=== PATIENT | female | born 1950 | race Caucasian/White ===

== ENCOUNTER 2020-12-08 10:25 | Inpatient (IN) ==
--- NOTE | 2020-12-08 11:24 | Emergency Department Note ---
History of Present Illness General Chief complaint: Shortness of Breath/Dyspnea Stated complaint: SOB,FILLING UP WITH FLUID Time Seen by Provider: 12/08/20 11:03 Source: patient and family Limitations: altered mental status History of Present Illness Provider complaint: Cough and shortness of breath Onset (ago): day(s) Location: chest Pain Consistency: + intermittent Maximum Pain Intensity: 0 Quality: + other (Cough and shortness of breath) Relieved By: + none Associated symptoms: + confusion, + cough, + headaches (Intermittent headaches), + nausea/vomiting (Nausea without vomiting), + shortness of breath and + other (Diarrhea); no chest pain or no fever/chills This is a 70-year-old female with a history of pleural effusion status post pleurodesis and stage IV lung cancer presenting with her daughter with shortness of breath and cough starting yesterday. The patient's daughter is providing history as well as the patient due to her increased confusion. She states that the patient gets confused whenever she gets a pleural effusion. She is not sure why that occurs. She has had 2 pleural effusions recently and had pleurodesis performed. She states that her mother became short of breath and started coughing yesterday. She is also confused. She has been diagnosed with stage IV lung cancer and she has missed 2 appointments for a PET scan due to becoming ill prior to the scans. She is scheduled to have one tomorrow. Her daughter states she is concerned about possible aspiration as the patient has vocal cord injury and asked to have a special diet. She has been coughing since yesterday. She is vaccinated for COVID-19 as is the whole household. She has had no known exposure. She complains of intermittent headaches. She is nauseous but not vomiting. She denies any chest pain or abdominal pain. She does have some diarrhea. Home Medications Medication Instructions Recorded Confirmed Type benzonatate 100 mg capsule 100 mg PO BID PRN 12/08/20 12/08/20 History (Everardo Winchester) duloxetine 60 mg capsule,delayed 60 mg PO QAM 12/08/20 12/08/20 History release ergocalciferol (vitamin D2) 1,250 1,250 mcg PO WK 12/08/20 12/08/20 History mcg (50,000 unit) capsule (Vitamin D2) linaclotide 72 mcg capsule 72 mcg PO HS 12/08/20 12/08/20 History (Linzess) lorazepam 1 mg tablet (Ativan) 1 mg PO TID 12/08/20 12/08/20 History omeprazole 20 mg tablet,delayed 20 mg PO BID 12/08/20 12/08/20 History release umeclidinium 62.5 mcg-vilanterol 1 inh INHALATION DAILY 12/08/20 12/08/20 History 25 mcg/actuation powdr for inhalation (Anoro Ellipta) Allergies Allergy/AdvReac Type Severity Reaction Status Date / Time acetaminophen Allergy Mild nausea,vomi Unverified 12/08/20 13:45 tting oxycodone Allergy Mild nausea,vomi Unverified 12/08/20 13:45 tting Past Med/Surg History Medical History Lung cancer Pleural effusion Social History Smoking Status: Former smoker Hx Alcohol Use: No Hx Substance Use: No Preferred Language: Lebanese Communication Ability: Effective Nutrition Professor Required: No Beliefs That Will Affect Care: None Current Living Situation: Family Current Living Situation Comment: lives with sofia in [place] Feels Safe at Home: Yes Safety Concerns: Feels Safe At This Time Assistive Devices: Denture - Upper, Denture - Lower and Glasses Assistive Devices Comment: uses a walking stick at times at home Review of Systems See HPI for pertinent positives & negatives. and A total of 10 systems reviewed and were otherwise negative Physical Exam Vital Signs Vital Signs - 24 hr 12/08/20 10:43 12/08/20 11:15 12/08/20 14:01 Temperature 36.7 C Temperature Source Temporal Artery Scan Pulse Rate 113 H Pulse Rate [Right Finger] 100 H Respiratory Rate 18 22 Respiratory Effort / Characteristics Spontaneous Non-Labored Spontaneous Respiratory Depth Normal Blood Pressure 101/68 Blood Pressure [Right Arm] 121/75 Blood Pressure Mean 79 Blood Pressure Mean [Right Arm] 90 Blood Pressure Position [Right Arm] Sitting Pulse Oximetry 96 97 Oxygen Delivery Method Room Air Room Air Sepsis Recent Fever Within 48 Hours No Sepsis New/Unexplained Change in Mental Status No Sepsis Action Taken by Nursing No Action Required Constitutional: Vital signs reviewed. Eyes: Pupils are equal round reactive to light. Conjunctiva are noninjected. ENT: Pharynx is clear without erythema or exudate. Mucous membranes are moist. Neck supple without meningeal signs. Respiratory: Clear to auscultation bilaterally except for crackles at the right base. Breath sounds are equal bilaterally. Cardiovascular: Tachycardic. Heart rate 108. Regular rhythm. GI: Soft, nondistended and nontender. Bowel sounds are present. Musculoskeletal: No peripheral edema. No lower extremity tenderness. Integumentary: No cyanosis. or jaundice. Neurologic: The patient is awake and alert. She is oriented to person and year only. Cranial nerves II-XII are intact. Motor is 5 out of 5 all extremities. Sensation is intact to light touch all extremities. No slurred speech. Hypophonic due to vocal cord injury. No pronator drift. No limb ataxia. Psychiatric: Normal affect. Course Administered Medications Discontinued Medications Piperacillin Sod/Tazobactam Sod (Zosyn) 4.5 gm in 120 mls @ 240 mls/hr IV NOW ONE Stop: 12/08/20 14:15 Last Infusion: 12/08/20 15:09 Dose: 0 mls/hr Documented by: [id number] Admin: 12/08/20 14:26 Dose: 240 mls/hr Documented by: [id number] Medical Decision Making Differential Diagnosis Pneumonia, aspiration, bronchitis, COVID-19, pleural effusion, metastases to the brain, hypercapnia Medical Records Attestation: I reviewed the patient's medical records. I did perform a limited focused review of portions of the patient's old chart on the electronic medical record. The patient has had no recent pertinent visits to this hospital. Home Medications Current Medication List: was personally reviewed by me Laboratory Data Attestation: I reviewed the patient's lab results. Result diagrams: 12/08/20 11:35 12/08/20 11:35 Lab Results 12/08/20 12/08/20 12/08/20 Range/Units 11:35 11:35 11:37 WBC 14.82 H (4.8-10.8) K/uL RBC 3.71 L (4.2-5.4) M/uL Hgb 11.8 L (12.0-16.0) g/dL Hct 35.2 L (37-47) % MCV 94.9 (80-100) fL MCH 31.8 (25-34) pg MCHC 33.5 (32-36) g/dL RDW Std Deviation 50.2 H (36.4-46.3) fL RDW Coeff of Davonte 14.5 (11.5-14.5) % Plt Count 343 (130-400) K/uL MPV 9.9 (7.4-10.4) fL Immature Gran % (Auto) 0.3 % Neut % (Auto) 83.7 % Lymph % (Auto) 12.9 % [place] % (Auto) 2.5 % Eos % (Auto) 0.5 % Baso % (Auto) 0.1 % Neut # (Auto) 12.41 H (1.4-6.5) K/uL Lymph # (Auto) 1.91 (1.2-3.4) K/uL [place] # (Auto) 0.37 (0.11-0.59) K/uL Eos # (Auto) 0.08 (0-0.5) K/uL Baso # (Auto) 0.01 (0-0.2) K/uL Immature Gran # (Auto) 0.04 H (0.00-0.02) K/uL Sodium 132 L (136-145) mmol/L Potassium 4.1 (3.5-5.1) mmol/L Chloride 97 L (98-107) mmol/L Carbon Dioxide 33 H (21-32) mmol/L Anion Gap 2.0 L (3-11) BUN 10 (7-18) mg/dl Creatinine 0.58 L (0.6-1.2) mg/dl Est Cr Clr Drug Dosing 71.4 ml/min Est GFR ( Amer) 108.2 ml/min Est GFR (Non-Af Amer) 93.4 ml/min BUN/Creatinine Ratio 17.7 (10-20) Glucose 134 H (70-99) mg/dl Calcium 9.1 (8.5-10.1) mg/dl Magnesium 1.9 (1.8-2.4) mg/dl Total Bilirubin 0.4 (0.2-1) mg/dl AST 17 (15-37) U/L ALT 21 (12-78) U/L Alkaline Phosphatase 55 (45-117) U/L Troponin I < 0.015 (0-0.045) ng/ml Total Protein 6.3 L (6.4-8.2) gm/dl Albumin 2.5 L (3.4-5.0) gm/dl Globulin 3.8 (2.5-4.0) gm/dl Albumin/Globulin Ratio 0.7 L (0.9-2) COVID-19 Eval Order Covid19 at [facility] SARS-CoV-2 (PCR) (Negative) 12/08/20 Range/Units 11:37 WBC (4.8-10.8) K/uL RBC (4.2-5.4) M/uL Hgb (12.0-16.0) g/dL Hct (37-47) % MCV (80-100) fL MCH (25-34) pg MCHC (32-36) g/dL RDW Std Deviation (36.4-46.3) fL RDW Coeff of Davonte (11.5-14.5) % Plt Count (130-400) K/uL MPV (7.4-10.4) fL Immature Gran % (Auto) % Neut % (Auto) % Lymph % (Auto) % [place] % (Auto) % Eos % (Auto) % Baso % (Auto) % Neut # (Auto) (1.4-6.5) K/uL Lymph # (Auto) (1.2-3.4) K/uL [place] # (Auto) (0.11-0.59) K/uL Eos # (Auto) (0-0.5) K/uL Baso # (Auto) (0-0.2) K/uL Immature Gran # (Auto) (0.00-0.02) K/uL Sodium (136-145) mmol/L Potassium (3.5-5.1) mmol/L Chloride (98-107) mmol/L Carbon Dioxide (21-32) mmol/L Anion Gap (3-11) BUN (7-18) mg/dl Creatinine (0.6-1.2) mg/dl Est Cr Clr Drug Dosing ml/min Est GFR ( Amer) ml/min Est GFR (Non-Af Amer) ml/min BUN/Creatinine Ratio (10-20) Glucose (70-99) mg/dl Calcium (8.5-10.1) mg/dl Magnesium (1.8-2.4) mg/dl Total Bilirubin (0.2-1) mg/dl AST (15-37) U/L ALT (12-78) U/L Alkaline Phosphatase (45-117) U/L Troponin I (0-0.045) ng/ml Total Protein (6.4-8.2) gm/dl Albumin (3.4-5.0) gm/dl Globulin (2.5-4.0) gm/dl Albumin/Globulin Ratio (0.9-2) COVID-19 Eval Order SARS-CoV-2 (PCR) NEGATIVE (Negative) Imaging Data Radiologist's Impression: Head CT 12/08/20 11:[address] DOSE: 614.27 mGy.cm HISTORY: Altered mental status. TECHNIQUE: Multiaxial CT images of the head were performed without the use of intravenous contrast. Automated exposure control was utilized for this study. A dose lowering technique was utilized adhering to the principles of ALARA. Comparison: None. Findings: The paranasal sinuses and mastoid air cells are clear. The calvarium and skull base are intact. There is no mass, hematoma, midline shift, acute infarct. White matter hypodensity is nonspecific but suggestive of microvascular ischemic change. The ventricles and sulci demonstrate mild age-related involutional changes. Impression: No acute intracranial abnormality. Atrophy and microvascular ischemic changes. ACT 112: Negative or not required by law. Electronically signed by: Juan Miguel Rodriguez M.D. 12/08/2020 12:33 PM Chest X-Ray 12/08/20 11:16 XR chest 1V portable HISTORY: Dyspnea COMPARISON: None. FINDINGS: Patchy small peripheral airspace opacities within the mid lung zones. There is also a 1.2 cm nodular density within the left midlung zone. Trace bilateral pleural effusions. The heart is borderline enlarged. There is mild interstitial thickening most pronounced on the right. Old, healed right humeral neck fracture. No pneumothorax. Old posttraumatic and postoperative changes within the left humerus. IMPRESSION: 1. Small peripheral airspace opacities within the mid to lower lung zones with interstitial thickening and trace bilateral pleural effusions. This could be due to a low-grade viral pneumonia or mild interstitial pulmonary edema. 2. A 1.2 cm nodular density within left midlung zone may also correspond to the suspected edema/pneumonia. However, one to 2 month chest x-ray follow-up recommended to ensure resolution and to exclude the less likely possibility of a pulmonary nodule. ACT 112: Negative or not required by law. Electronically signed by: Juan Miguel Rodriguez M.D. 12/08/2020 1:38 PM ECG Data Attestation: I personally reviewed and interpreted this ECG as follows: Indication: + SOB/dyspnea Rate (beats per minute): 103 Rhythm: + sinus tachycardia ECG ST segments: + T-wave inversions; no ST elevation ECG Findings: + Other (Low voltage QRS); no PVCs MDM Narrative I did evaluate the patient as noted above. She is presenting with some confus ion and shortness of breath. She has also been coughing. I did obtain history from the patient as well as her daughter due to her confusion. IV access was established. I did place an order for continuous cardiac monitoring. The monitor showed sinus tachycardia rate of 103 bpm. I did order and personally review the patient's 12-lead EKG as described above. She has no acute ischemic changes. I did order and personally reviewed the images of the patient's chest x-ray as described above. She appears to have a bilateral pneumonia. I did order a urine analysis. I did order and review the patient's blood work as noted in the electronic medical record. Her white count is elevated over 14 ,000. She is anemic with a hemoglobin 11.8. Electrolytes demonstrate a sodium of 132, chloride of 97 and CO2 of 33. Troponin is negative. I did order a CT of the head. I did review the images myself as well as the radiology report as described above. There is no evidence of acute intracranial abnormality. I did discuss the test results with the patient and her daughter. I did treat the pat ient with Zosyn 4.5 g IV after blood cultures were obtained. Covid testing was negative. I did discuss the case with the hospitalist and hospice case manager. Impression & Plan Multifocal pneumonia, Acute hyponatremia, Anemia, Lung cancer, Acute confusion Discharge Plan Visit Data Chief Complaint: Shortness of Breath/Dyspnea Stated Complaint: SOB,FILLING UP WITH FLUID ED Provider: Skinny Eubanks Discharge Problem: Multifocal pneumonia, Acute hyponatremia, Anemia, Lung cancer, Acute confusion Patient Disposition: Admitted As Inpatient Discharge Instructions Interventions: ED Discharge Assessment Last Done: 12/08/20 18:07
[2020-12-08 11:46] LABS: Basophils # (auto) 0.01 K/uL (0-0.2); Basophils % (auto) 0.1 %; Eosinophils # (auto) 0.08 K/uL (0-0.5); Eosinophils % (auto) 0.5 %; Hematocrit (blood only) 35.2 % (37-47); Hemoglobin 11.8 g/dL (12.0-16.0); Immature Granulocytes # (auto) 0.04 K/uL (0.00-0.02); Immature Granulocytes % (auto) 0.3 %; Lymphocytes # (auto) 1.91 K/uL (1.2-3.4); Lymphocytes % (auto) 12.9 %; Mean Corpuscular Hemoglobin 31.8 pg (25-34); Mean Corpuscular Hgb Conc 33.5 g/dL (32-36); Mean Corpuscular Volume 94.9 fL (80-100); Mean Platelet Volume 9.9 fL (7.4-10.4); Monocytes # (auto) 0.37 K/uL (0.11-0.59); Monocytes % (auto) 2.5 %; Neutrophils # (auto) 12.41 K/uL (1.4-6.5); Neutrophils % (auto) 83.7 %; Platelet Count 343 K/uL (130-400); RDW Coefficient of Variation 14.5 % (11.5-14.5); RDW Standard Deviation 50.2 fL (36.4-46.3); Red Blood Count 3.71 M/uL (4.2-5.4); White Blood Count 14.82 K/uL (4.8-10.8)
[2020-12-08 12:03] LABS: Alanine Aminotransferase 21 U/L (12-78); Albumin Level 2.5 gm/dl (3.4-5.0); Aspartate Aminotransferase 17 U/L (15-37); BUN Creatinine Ratio 17.7 (10-20); Blood Urea Nitrogen 10 mg/dl (7-18); Calcium 9.1 mg/dl (8.5-10.1); Carbon Dioxide 33 mmol/L (21-32); Chloride 97 mmol/L (98-107); Creatinine Clr Calc Pharmacy 71.4 ml/min; Est GFR (African American) 108.2 ml/min; Est GFR (Non-African American) 93.4 ml/min; Glucose 134 mg/dl (70-99); Magnesium 1.9 mg/dl (1.8-2.4); Potassium 4.1 mmol/L (3.5-5.1); Sodium 132 mmol/L (136-145)
[2020-12-08 12:08] LABS: Albumin Globulin Ratio 0.7 (0.9-2); Alkaline Phosphatase 55 U/L (45-117); Bilirubin,Total 0.4 mg/dl (0.2-1); Globulin 3.8 gm/dl (2.5-4.0); Total Protein 6.3 gm/dl (6.4-8.2); Troponin I < 0.015 ng/ml (0-0.045)
--- NOTE | 2020-12-08 12:35 | CT Scan Report ---
HEAD CT NONCONTRAST CT DOSE: 614.27 mGy.cm HISTORY: Altered mental status. TECHNIQUE: Multiaxial CT images of the head were performed without the use of intravenous contrast. A utomated exposure control was utilized for this study. A dose lowering technique was utilized adheri ng to the principles of ALARA. Comparison: None. Findings: The paranasal sinuses and mastoid air cells are clear. The calvarium and skull base are int act. There is no mass, hematoma, midline shift, acute infarct. White matter hypodensity is nonspecifi c but suggestive of microvascular ischemic change. The ventricles and sulci demonstrate mild age-rela jeevan involutional changes. Impression: No acute intracranial abnormality. Atrophy and microvascular ischemic changes. ACT 112: Negative or not required by law. Electronically signed by: Juan Miguel Rodriguez M.D. 12/08/2020 12:33 PM
--- NOTE | 2020-12-08 13:40 | XRay Report ---
XR chest 1V portable HISTORY: Dyspnea COMPARISON: None. FINDINGS: Patchy small peripheral airspace opacities within the mid lung zones. There is also a 1.2 c m nodular density within the left midlung zone. Trace bilateral pleural effusions. The heart is borde rline enlarged. There is mild interstitial thickening most pronounced on the right. Old, healed right humeral neck fracture. No pneumothorax. Old posttraumatic and postoperative changes within the left humerus. IMPRESSION: 1. Small peripheral airspace opacities within the mid to lower lung zones with interstitial thickenin g and trace bilateral pleural effusions. This could be due to a low-grade viral pneumonia or mild int erstitial pulmonary edema. 2. A 1.2 cm nodular density within left midlung zone may also correspond to the suspected edema/pneum onia. However, one to 2 month chest x-ray follow-up recommended to ensure resolution and to exclude t he less likely possibility of a pulmonary nodule. ACT 112: Negative or not required by law. Electronically signed by: Juan Miguel Rodriguez M.D. 12/08/2020 1:38 PM
[2020-12-08] MEDS ORDERED: PIPERACILLIN/TAZOBACTAM 4.5 GM/120 ML BAG IV ONE (13:46)
[2020-12-08] MEDS ORDERED: PIPERACILL/TAZOBAC CONSULT ACTIVE PRN (13:46)
--- NOTE | 2020-12-08 14:38 | History & Physical Report ---
Date of Service December 08, 2020 Assessment & Plan (1) Multifocal pneumonia: Plan: MRSA nasal swab pending Continue Zosyn for aspiration pneumonia given immunosuppressed state SLT assessment Follow up blood cultures (2) Acute confusion: Plan: Suspect due to infection as above (3) Acute hyponatremia: Plan: IV fluids as above (4) Lung cancer: Plan: Stage IV diagnosed on prior hospital notes although details on this not available at this time. I understand this diagnosis was made due to bilateral nodules on CT with metastatic cells with her pleural effusion. Consult oncology as planning on establishing with [facility]. (5) Anemia: Plan: Monitor with serial CBC (6) COPD (chronic obstructive pulmonary disease): Plan: No acute exacerbation suspected at this time. (7) GERD (gastroesophageal reflux disease): Plan: Switch omeprazole to pantoprazole per hospital formulary (8) Soft hoarse voice: Plan: Vocal cord paralysis noted on prior admission. Going on for months according to patient. Possibly from intubation noted on [facility] notes but seem more likely related to metastatic disease. She was treated with steroids but has not seen any improvement. Yet to see ENT. Will consult SLT. (9) Night sweats: (10) Anxiety: Plan: Continue duloxetine 60mg PO daily On ARTHUR Ativan for many years. Continue 1mg TID Plan: VTE Prophylaxis - deferred on admission, consider Lovenox if stable tomorrow and no invasive procedures planned Diet - NPO pending SLT assessment Disposition - admit to med/surg Admission and Anticipated Discharge Date Admission Date: December 08, 2020 History of Present Illness Chief Complaint: Shortness f breath Primary Care Provider: NO PCP Tracey Felton is a 70 year old female with stage IV lung cancer who presents to the ER with shortness of breath and confusion. History is mostly taken with her daughter at bedside due to confusion and patient has a haorse soft voice from vocal cord palsy. She has just moved here with her daughter and is yet to establish care. Previous care was done in the [facility]. Most recently in [facility] from November 18 - for recurrent pleural effusion on right side which required pleurodesis, PNA and COPD. She was intubated for acute hypoxic respiratory failure. She had pleurodesis prior to this at [facility] although results of this are not available on admission. On this occasion it was treated with VATS with talc pleurodesis (11/20). She was treated initially with Vancomycin/Zosyn, steroids and treated for sepsis. She was advised to have a thickened diet due to vocal cord palsy and aspirations. No conversation had taken place regarding PEG tubes and this was a new concept for the patient and his daughter. At home she has been noticeably aspirating despite thickened diet. She has had problems with aspirations and her hoarse voice for many months prior to recent hospitalization. She has not seen ENT but it was recommended after her last admission. Reportedly diagnosed with vocal cord palsy and treated with steroids in the hope of improvement after intubation. She has a prior history of non-small cell carcinoma treated prior to this (details not available on admission). This was treated with chemotherapy and left upper lobe lobectomy per her daughter. No radiation. In the ER CXR showed small peripheral airspace opacities within the mid to lower lung zones with interstitial thickening and trace bilateral pleural effusions. WBC elevated. She is not requiring any oxygen. UA pending collection. She was referred to medicine for admission and ongoing management of PNA and lung cancer. Allergies Allergy/AdvReac Type Severity Reaction Status Date / Time acetaminophen Allergy Mild nausea,vomi Unverified 12/08/20 13:45 tting oxycodone Allergy Mild nausea,vomi Unverified 12/08/20 13:45 tting Home Medications Medication Instructions Recorded Confirmed Type benzonatate 100 mg capsule 100 mg PO BID PRN 12/08/20 12/08/20 History (Everardo Winchester) duloxetine 60 mg capsule,delayed 60 mg PO QAM 12/08/20 12/08/20 History release ergocalciferol (vitamin D2) 1,250 1,250 mcg PO WK 12/08/20 12/08/20 History mcg (50,000 unit) capsule (Vitamin D2) linaclotide 72 mcg capsule 72 mcg PO HS 12/08/20 12/08/20 History (Linzess) lorazepam 1 mg tablet (Ativan) 1 mg PO TID 12/08/20 12/08/20 History omeprazole 20 mg tablet,delayed 20 mg PO BID 12/08/20 12/08/20 History release umeclidinium 62.5 mcg-vilanterol 1 inh INHALATION DAILY 12/08/20 12/08/20 History 25 mcg/actuation powdr for inhalation (Anoro Ellipta) Past Med/Surg History Medical History (Updated 12/09/20 @ 08:02 by Harinder Mauro MD) COPD (chronic obstructive pulmonary disease) GERD (gastroesophageal reflux disease) History of CVA (cerebrovascular accident) Chronic right basal ganglia infarct noted on CT Lung cancer Pleural effusion Shoulder fracture Right, 2017 Social History Smoking Status: Former smoker Hx Alcohol Use: No Hx Substance Use: No Preferred Language: Urdu Communication 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: No Beliefs That Will Affect Care: None Current Living Situation: Family Current Living Situation Comment: lives with sofia in [place] Feels Safe at Home: Yes Safety Concerns: Feels Safe At This Time Assistive Devices: Glasses and Walker Assistive Devices Comment: uses a walking stick at times at home Review of Systems Review of Systems: All systems reviewed & are unremarkable except as noted in HPI & below Physical Exam Constitutional: well developed and + cachectic; + not well nourished and no acute distress Eyes: PERRL, conjunctivae normal, anicteric sclerae ENMT: Mouth: + muffled voice and + dry oral mucous membranes Neck: trachea midline, no thyromegaly Respiratory: normal respiratory effort; no respiratory distress Auscultation: + diminished lung sounds and + crackles (throughout); no wheezes Cardiovascular: Rate/Rhythm: regular rhythm and + tachycardic Heart Sounds: no murmur Extremities: normal capillary refill; no calf tenderness and no pedal edema Gastrointestinal (Abdomen): normal bowel sounds, soft, nontender, no hepatosplenomegaly Musculoskeletal: no cyanosis or clubbing, extremities motor strength 5/5 Skin: no rashes, warm and dry Neurologic: moves all extremities, awake and + confused; no focal motor deficits (no lateralizing weakness) Psychiatric: A+Ox3, euthymic affect Results & Data Results & Data ([facility]) Vital Signs (Past 12 Hours) Vital Signs Temp Pulse Pulse Resp BP BP Pulse Ox 12/08/20 14:01 100 H 22 121/75 97 12/08/20 10:43 36.7 C 113 H 18 101/[address] NONCONTRAST CT DOSE: 614.27 mGy.cm HISTORY: Altered mental status. TECHNIQUE: Multiaxial CT images of the head were performed without the use of intravenous contrast. Automated exposure control was utilized for this study. A dose lowering technique was utilized adhering to the principles of ALARA. Comparison: None. Findings: The paranasal sinuses and mastoid air cells are clear. The calvarium and skull base are intact. There is no mass, hematoma, midline shift, acute infarct. White matter hypodensity is nonspecific but suggestive of microvascular ischemic change. The ventricles and sulci demonstrate mild age-related involutional changes. Impression: No acute intracranial abnormality. Atrophy and microvascular ischemic changes XR chest 1V portable HISTORY: Dyspnea COMPARISON: None. FINDINGS: Patchy small peripheral airspace opacities within the mid lung zones. There is also a 1.2 cm nodular density within the left midlung zone. Trace bilateral pleural effusions. The heart is borderline enlarged. There is mild interstitial thickening most pronounced on the right. Old, healed right humeral neck fracture. No pneumothorax. Old posttraumatic and postoperative changes within the left humerus. IMPRESSION: 1. Small peripheral airspace opacities within the mid to lower lung zones with interstitial thickening and trace bilateral pleural effusions. This could be due to a low-grade viral pneumonia or mild interstitial pulmonary edema. 2. A 1.2 cm nodular density within left midlung zone may also correspond to the suspected edema/pneumonia. However, one to 2 month chest x-ray follow-up recommended to ensure resolution and to exclude the less likely possibility of a pulmonary nodule. Medications Administered ER Medications Given: Zosyn 4.5g IV ECG Indication: SOB/dyspnea Rate (beats per minute): 103 Rhythm: sinus tachycardia Findings: no acute ischemic change Comparison ECG Date: no prior available Code Status & VTE Plan Code Status DNR/DNI per patient wishes VTE Prophylaxis Plan VTE Prophylaxis will be ordered: Yes PG Care Time/CCT Total # of Minutes Spent Total Time Spent with Patient: Total time spent is greater than 50% in coordination of care (as documented) at patient's floor/unit and/or counseling patient: Coding Level of Care Code 22106 Initial Inpt Care Lvl 3 Diagnoses Multifocal pneumonia J18.9 Anemia D64.9 Anemia type: unspecified type Acute confusion R41.0 Acute hyponatremia E87.1 Lung cancer C34.90 Laterality: unspecified laterality Lung location: unspecified part of lung COPD (chronic obstructive pulmonary disease) J44.9 GERD (gastroesophageal reflux disease) K21.9 Night sweats R61 Soft hoarse voice R49.0 Anxiety F41.9 (1) Anemia Anemia type: unspecified type Qualified Code(s): D64.9 - Anemia, unspecified (2) Lung cancer Laterality: unspecified laterality Lung location: unspecified part of lung Qualified Code(s): C34.90 - Malignant neoplasm of unspecified part of unspecified bronchus or lung
[2020-12-08] MEDS: PIPERACILLIN/TAZOBACTAM 3.375 GM in DEXTROSE 5% 100 ML IV SCH (19:59)
--- NOTE | 2020-12-08 20:02 | Electrocardiogram Report ---
Test Reason : Blood Pressure : / mmHG Vent. Rate : 103 BPM Atrial Rate : 103 BPM P-R Int : 130 ms QRS Dur : 078 ms QT Int : 332 ms P-R-T Axes : 044 -25 050 degrees QTc Int : 434 ms Sinus tachycardia Possible Left atrial enlargement Low voltage QRS Cannot rule out Anterior infarct , age undetermined Abnormal ECG No previous ECGs available Confirmed by Jean-Claude Colunga ([id number]) on 12/08/2020 8:01:51 PM Referred By: REFERRED SELF Confirmed By:Jean-Claude Colunga
[2020-12-08] MEDS ORDERED: SODIUM CHLORIDE 0.9% 1000ML 500 ML IV ONE (20:16)
[2020-12-08] MEDS: linaCLOtide 72 MCG CAPSULE PO SCH (20:16)
[2020-12-08] MEDS: BENZONATATE 100 MG CAPSULE PO SCH (20:16)
[2020-12-08] MEDS: PANTOprazole 40 MG TAB PO SCH (20:16)
[2020-12-08] MEDS: LORazepam 1 MG TAB PO SCH (20:18)
[2020-12-08] MEDS: SODIUM CHLORIDE 0.9% 1000ML 1,000 ML IV SCH (23:33)
[2020-12-09] MEDS: PIPERACILLIN/TAZOBACTAM 3.375 GM in DEXTROSE 5% 100 ML IV SCH ×3 (04:39→19:30)
[2020-12-09] MEDS ORDERED: ALBUT/IPRATROP 3MG/0.5MG NEB 3 ML VIAL NEB PRN (07:31)
[2020-12-09 07:51] LABS: Basophils # (auto) 0.01 K/uL (0-0.2); Basophils % (auto) 0.1 %; Eosinophils # (auto) 0.06 K/uL (0-0.5); Eosinophils % (auto) 0.5 %; Hematocrit (blood only) 31.4 % (37-47); Hemoglobin 10.6 g/dL (12.0-16.0); Immature Granulocytes # (auto) 0.02 K/uL (0.00-0.02); Immature Granulocytes % (auto) 0.2 %; Lymphocytes # (auto) 0.85 K/uL (1.2-3.4); Lymphocytes % (auto) 7.1 %; Mean Corpuscular Hemoglobin 31.6 pg (25-34); Mean Corpuscular Hgb Conc 33.8 g/dL (32-36); Mean Corpuscular Volume 93.7 fL (80-100); Mean Platelet Volume 9.8 fL (7.4-10.4); Monocytes # (auto) 1.07 K/uL (0.11-0.59); Neutrophils % (auto) 83.1 %; Platelet Count 323 K/uL (130-400); RDW Coefficient of Variation 14.5 % (11.5-14.5); RDW Standard Deviation 49.5 fL (36.4-46.3); Red Blood Count 3.35 M/uL (4.2-5.4); White Blood Count 11.91 K/uL (4.8-10.8)
[2020-12-09 08:20] LABS: Albumin Globulin Ratio 0.6 (0.9-2); Albumin Level 2.1 gm/dl (3.4-5.0); BUN Creatinine Ratio 15.4 (10-20); Bilirubin,Total 0.7 mg/dl (0.2-1); Calcium 8.4 mg/dl (8.5-10.1); Est GFR (African American) 117.7 ml/min; Est GFR (Non-African American) 101.5 ml/min; Globulin 3.3 gm/dl (2.5-4.0); Magnesium 1.7 mg/dl (1.8-2.4); Phosphorus 2.8 mg/dl (2.5-4.9); Potassium 3.3 mmol/L (3.5-5.1); Total Protein 5.4 gm/dl (6.4-8.2)
[2020-12-09] MEDS ORDERED: MAGNESIUM SULFATE / D5W 1 GM/100 ML BAG IV STA (08:32)
--- NOTE | 2020-12-09 08:33 | Consultation Report ---
MEDICAL ONCOLOGY CONSULTATION DATE OF SERVICE: 12/09/2020. REASON FOR CONSULTATION: Metastatic non-small cell lung cancer. HISTORY OF PRESENT ILLNESS: Tracey Felton is a 70-year-old female patient with suspected stage IV non-s mall cell lung cancer, who presented to the emergency room with shortness of breath and confusion. T he patient herself is not the best historian battling with laryngitis like symptomatology. Apparentl y, she had just moved to our area to be closer to her daughter. She was originally diagnosed with aidan ng cancer in 2019, status post lobectomy followed by consolidative chemotherapy. Unfortunately, I mcdonald ve none of the original pathology or treatment grid and thus could not be specific. The patient was admitted to a facility near her home in [place] a couple of weeks ago for recurrent pleural effusion and underwent VATS procedure with pleurodesis. There again, I do not have pathology from the pleura l fluid removed, but apparently according to medical records about 700 mL were collected. The patien jarred readily admits to anorexia and weight loss, but nonspecific on amount. Apparently, she has not fol lowed with medical oncology at home in quite some time. I have been asked to introduce myself in pre paration to offer salvage therapy. PAST MEDICAL HISTORY: Significant for COPD, gastroesophageal reflux disease, malignant pleural effus ion (right), and non-small cell lung cancer. MEDICATIONS PRIOR TO ADMISSION: Omeprazole 20 mg p.o. b.i.d.; lorazepam 1 mg p.o. t.i.d.; Linzess 72 mcg p.o. at bedtime; vitamin D2 1250 mcg p.o. weekly; duloxetine 60 mg p.o. q. daily; Tessalon Perle s 100 mg p.o. b.i.d., p.r.n.; and umeclidinium inhaler one inhalation p.o. q daily, Anoro Ellipta is the brand name. ALLERGIES: OXYCODONE, ACETAMINOPHEN. SOCIAL HISTORY: The patient is retired, recently moved to our area to be closer to her daughter. Sh jose daniel is a reformed smoker. Negative for alcohol or illicit drugs. FAMILY HISTORY: Noncontributory. PHYSICAL EXAMINATION: CONSTITUTIONAL: As best as I could obtain from the patient, she presented with shortness of breath a nd dyspnea on exertion. She also reports anorexia and nonspecific weight loss. Negative for fevers, chills, or sweats. HEENT: She denies headaches, lightheadedness, or dizziness. She wears corrective lenses. No hearin g deficits. No sinus symptoms, sore throat, or dysphagia. LYMPHATICS: No history of lymphoproliferative disease. CARDIAC: No history of coronary artery disease, no angina or palpitations. PULMONARY: Positive for right-sided malignant effusion, status post VATS and pleurodesis 2 weeks ago . GASTROINTESTINAL: Negative for abdominal pain, nausea, vomiting, diarrhea, constipation, hematochezi a, or melena stools. GENITOURINARY: No hematuria, dysuria, or urinary incontinence. PSYCHIATRIC: Positive for depression and anxiety. ENDOCRINE: Negative for diabetes or thyroid disease. NEUROLOGIC: Negative for seizure, stroke, or migraine headache. MUSCULOSKELETAL: No arthralgias or myalgias. No focal muscle weakness. HEMATOLOGIC: Positive for leukocytosis and normocytic, normochromic anemia. PHYSICAL EXAMINATION: GENERAL: An ill-appearing 70-year-old female, awake, alert, and appropriate, in no acute distress. VITAL SIGNS: Temperature 36.5, pulse 97, respiratory rate 18, blood pressure 129/84. SKIN: Warm, dry, noncyanotic without petechiae, rash, or ecchymosis. HEENT: Head atraumatic, normocephalic. Eyes: PERRLA. EOMI. Sclerae are nonicteric. No conjunctiv al injection. Nares patent without rhinorrhea or discharge. Throat clear. Tongue midline. Mucous membranes are moist. NECK: Supple without JVD or thyromegaly. LYMPHATICS: No cervical, supraclavicular, axillary, or inguinal palpable nodes. HEART: Regular rate and rhythm. No clicks, rubs, murmurs, or gallops. LUNGS: Rales and rhonchi heard diffusely, diminished breath sounds in the right posterior base. ABDOMEN: Soft, nontender, nondistended, without palpable hepatosplenomegaly. Bowel sounds hypoactiv e. EXTREMITIES: No clubbing, cyanosis, or edema. NEUROLOGIC: She is awake, alert, and oriented. LABORATORY DATA: WBC count 11,910, hemoglobin 10.6, platelet count 223,000, ANC 9900. Chemistries a re pending at the time of dictation. RADIOGRAPHIC DATA: Chest x-ray done on admission, small peripheral airspace opacities within the mid and lower lung zones, interstitial thickening, trace bilateral pleural effusions. A 1.2 nodular den sity in the left lung mid zone, may also correspond to suspected edema, pneumonia. IMPRESSION: 1. Multifocal pneumonia. 2. Confusion/anxiety. 3. Stage IV non-small cell lung cancer. 4. Normocytic normochromic anemia. 5. Leukocytosis. PLAN: Tracey Felton is a 70-year-old female patient with a remote history of non-small cell lung cancer , status post lobectomy followed by consolidative chemotherapy. Apparently, Tracey has been lost to o ncologic followup and was admitted to a facility near her home in [place] a couple of weeks ago when she presented with shortness of breath attributable to right-sided pleural effusion. Apparently, VA TS and pleurodesis was performed. Unfortunately, I have none of her pathology, which needs to be obt ained to plan for salvage treatment. Tracey, from what I could get out of her, desires to have salvag e therapy. Again, I would like to get a handle on what she has received in the past and evaluate her for possible immune therapy moving forward. In the meantime, it would be helpful to ask General Jayy gianluca to consider [facility]. Additionally, I would like a CT scan of the chest, abdomen and pelvis wit h contrast. Ideally, I would like a PET scan, which I still may obtain post-discharge, but to start CT of the chest, abdomen and pelvis will suffice. I cannot make definitive recommendations based on the paucity of information in hand. Thank you very much for allowing me to participate in her care and we will follow her periodically du [facility] hospitalization. We will plan to convene with her at [facility] within the next week or two. Job ID: [id number]
[2020-12-09] MEDS: LORazepam 1 MG TAB PO SCH ×3 (08:45→20:53)
[2020-12-09] MEDS: SODIUM CHLORIDE 0.9% 1000ML 1,000 ML IV SCH ×2 (10:03→22:59)
[2020-12-09] MEDS: POTASSIUM CHLORIDE / WTR 10 MEQ/100 ML PLCT IV SCH ×2 (11:12→17:29)
[2020-12-09] MEDS ORDERED: ACETAMINOPHEN 325 MG TAB PO PRN (11:26)
[2020-12-09] MEDS ORDERED: ACETAMINOPHEN 1,000 MG/100 ML VIAL IV PRN (11:26)
[2020-12-09] MEDS ORDERED: OPTIRAY 320 100ml IV ONE (11:39)
[2020-12-09] MEDS: PANTOprazole 40 MG TAB PO SCH ×2 (11:47→20:53)
[2020-12-09] MEDS: DULoxetine HCL 60 MG CAP PO SCH (11:47)
--- NOTE | 2020-12-09 11:53 | Palliative Care Consultation ---
Date of Consultation December 09, 2020 Assessment & Plan (1) Back pain of thoracolumbar region: Related to lung cancer versus musculoskeletal. Will order prn tylenol. (2) Palliative care encounter: I asked Tracey how she is coping with her illness. She told me "I'm dying". We talked about that further and she told me that she is not worried or afraid about dying. She is considering what her options might be for treatment. She is uncertain whether she would want to pursue treatment. We talked about whether she felt that living a longer life or having better quality of time were more important to her. She is uncertain about this. I spoke with her daughter, Delfina, on the phone. She would like to explore options for treatment and what that would look like for Tracey but she is also considering hospice. She is anxious to hear the results of speech therapy evaluation so that Tracey can drink liquids. She reports that Tracey was doing well with thickened liquids at home. She feels that the strength of her voice has improved from what it was. She noted that she would not be in favor of a PEG tube. We talked about the possibility of permissive aspiration. She felt that would be more what she would want moving forward if we cannot adjust her diet to allow her to eat and drink safely. She is agreeable to palliative care continuing to follow and would be interested in seeing palliative care as an outpatient. (3) Lung cancer: Laterality: unspecified laterality Lung location: unspecified part of lung Qualified Code(s): C34.90 - Malignant neoplasm of unspecified part of unspecified bronchus or lung (4) COPD (chronic obstructive pulmonary disease): History of Present Illness Reason for Consultation: goals of care Requesting Physician: Dr. Mauro Attending Physician: Walter Hall MD History of Present Illness 70 yo lady with NSCLC, Stage IV who recently moved to the area to be near her daughter. She has had ongoing problems with pleural effusions and shortness of breath. She did have VATS and pleuodesis about three weeks ago. She also has vocal cord paralysis. Per her daughter, Delfina, she was seen by speech therapy during previous hospitalization and recommended to have thickened liquids. She presented to the hospital with shortness of breath and confusion. Chest xray shows small bilateral pleural effusions with left opacity suggestive of pneumonia. Mrs. Felton is sleeping but easily arousable. She denies dyspnea or pain. She did say that her back was bothering her a little. Her daughter notes that she has had intermittent back pain in her upper back. She has an allergy to tylenol listed but her daughter tells me that she does not have an allergy to tylenol. She has had nausea and vomiting with oxycodone and percocet in the past. Allergies Allergy/AdvReac Type Severity Reaction Status Date / Time acetaminophen Allergy Mild nausea,vomi Unverified 12/08/20 13:45 tting oxycodone Allergy Mild nausea,vomi Unverified 12/08/20 13:45 tting Home Medications Medication Instructions Recorded Confirmed Type benzonatate 100 mg capsule 100 mg PO BID PRN 12/08/20 12/08/20 History (Tessalon Perles) duloxetine 60 mg capsule,delayed 60 mg PO QAM 12/08/20 12/08/20 History release ergocalciferol (vitamin D2) 1,250 1,250 mcg PO WK 12/08/20 12/08/20 History mcg (50,000 unit) capsule (Vitamin D2) linaclotide 72 mcg capsule 72 mcg PO HS 12/08/20 12/08/20 History (Linzess) lorazepam 1 mg tablet (Ativan) 1 mg PO TID 12/08/20 12/08/20 History omeprazole 20 mg tablet,delayed 20 mg PO BID 12/08/20 12/08/20 History release umeclidinium 62.5 mcg-vilanterol 1 inh INHALATION DAILY 12/08/20 12/08/20 History 25 mcg/actuation powdr for inhalation (Anoro Ellipta) Patient History Medical History COPD (chronic obstructive pulmonary disease) GERD (gastroesophageal reflux disease) History of CVA (cerebrovascular accident) Chronic right basal ganglia infarct noted on CT Lung cancer Pleural effusion Shoulder fracture Right, 2016 Social History Smoking Status: Former smoker Hx Alcohol Use: No Hx Substance Use: No Preferred Language: [place] Citizen Communication Ability: Effective 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 Feels Safe at Home: Yes Safety Concerns: Feels Safe At This Time Assistive Devices: Glasses and Walker Assistive Devices Comment: uses a walking stick at times at home Review of Systems Review of Systems: [place] Symptom Assessment Scale Pain 1/3 Dyspnea 0/3 Fatigue 2/3 Nausea 0/3 Anxiety 0/3 Drowsiness 1/3 Palliative Performance Score 40% Physical Exam Constitutional: no acute distress ENMT: weak voice Respiratory: normal respiratory effort; no labored breathing Gastrointestinal (Abdomen): Inspection/Auscultation: abdomen not distended Musculoskeletal: Extremities: extremities normal to inspection Neurologic: mild confusion Results & Data ([facility]) Vital Signs (Past 12 Hours) Vital Signs Temp Pulse Resp BP Pulse Ox 12/09/20 07:56 98.1 F 96 H 16 126/85 98 PG Care Time/CCT Total # of Minutes Spent Total Time Spent: 75 Total Time Spent with Patient: Total time spent is greater than 50% in coordination of care (as documented) at patient's floor/unit and/or counseling patient: symptom management, goals of care, artificial nutrition, family education and support Coding Level of Care Code 60608 Initial Inpt Care Lvl 3 Diagnoses Back pain of thoracolumbar region M54.50; M54.6 Palliative care encounter Z51.5 Lung cancer C34.90 Laterality: unspecified laterality Lung location: unspecified part of lung COPD (chronic obstructive pulmonary disease) J44.9
--- NOTE | 2020-12-09 12:11 | CT Scan Report ---
CT abd pelvis IV con only CLINICAL INDICATION: MN ^1145 ^stage 4 lung cancer, staging. TECHNIQUE: Helical axial images of the abdomen and pelvis were obtained and displayed. Automated dose lowering techniques and/or adjustment according to patient size were utilized for this exam. This e xam was performed with intravenous contrast. COMPARISON: None available at the time of this dictation. FINDINGS: Lower chest: For findings above the diaphragm, please see CT chest performed same day. Liver: 11 mm hypodensity in the dome of the liver is seen which measures greater than simple fluid de nsity. Gallbladder and biliary tree: Multiple gallstones are seen, however the gallbladder wall is not thick ened. No intra- or extrahepatic biliary ductal dilation. Pancreas: Unremarkable, no focal lesions. Spleen: Unremarkable. Adrenals: Unremarkable. Kidneys and ureters: Subcentimeter hypodensity in the left kidney is too small to characterize. Bladder: Unremarkable. Reproductive organs: Unremarkable. Bowel: Unremarkable. Lymph nodes Retroperitoneal: Unremarkable. Mesenteric: Unremarkable. Pelvic: Unremarkable. Peritoneum: Normal Vessels: Atherosclerotic calcifications are seen. Abdominal wall: Unremarkable. Bones: Grade 1 retrolisthesis of L3 on L4 is seen. Degenerative changes are seen in the spine. IMPRESSION: 1. No evidence of metastatic disease in the abdomen. 2. 11 mm hypodensity of the dome of the liver is an greater than simple fluid density. If not previo usly evaluated, CT or MRI liver mass protocol can be performed. 3. Cholelithiasis without evidence of cholecystitis. ACT 112: Negative or not required by law. Electronically signed by: Konrad Bunch M.D. 12/09/2020 12:09 PM
--- NOTE | 2020-12-09 12:50 | Surgery Consultation ---
Date of Consultation December 09, 2020 Assessment & Plan (1) Lung cancer: Patient with metastatic right lung cancer who has had prior surgical intervention and possibly chemotherapy She had a recent right pleural effusion which was treated with a VATS I did discuss the situation with her daughter-they are currently evaluating the situation After discussions with Dr. Mcallister and palliative care Depending on studies and her progress they may consider hospice care We will monitor the patient closely and proceed with port when appropriate- possibly this week or early next week History of Present Illness Attending Physician: Walter Hall MD History of Present Illness 70-year-old female who we have been asked to see for port placement She has a history of metastatic right lung cancer who was admitted to the emergency room with shortness of breath and mental status changes with confusion-her right lung cancer is diagnosed in 2019 where she under went l obectomy and recently Underwent a VATS with pleurodesis for a malignant pleural effusion She apparently did have a port in place 2 or 3 years ago which may have been on the left side I did call and talk to her daughterCarla who was very helpful in understanding She is also spoken to Dr. Mcallister and also Lorrie Tracy from palliative care Allergies Allergy/AdvReac Type Severity Reaction Status Date / Time acetaminophen Allergy Mild nausea,vomi Unverified 12/08/20 13:45 tting oxycodone Allergy Mild nausea,vomi Unverified 12/08/20 13:45 tting Home Medications Medication Instructions Recorded Confirmed Type benzonatate 100 mg capsule 100 mg PO BID PRN 12/08/20 12/08/20 History (Everardo Winchester) duloxetine 60 mg capsule,delayed 60 mg PO QAM 12/08/20 12/08/20 History release ergocalciferol (vitamin D2) 1,250 1,250 mcg PO WK 12/08/20 12/08/20 History mcg (50,000 unit) capsule (Vitamin D2) linaclotide 72 mcg capsule 72 mcg PO HS 12/08/20 12/08/20 History (Linzess) lorazepam 1 mg tablet (Ativan) 1 mg PO TID 12/08/20 12/08/20 History omeprazole 20 mg tablet,delayed 20 mg PO BID 12/08/20 12/08/20 History release umeclidinium 62.5 mcg-vilanterol 1 inh INHALATION DAILY 12/08/20 12/08/20 History 25 mcg/actuation powdr for inhalation (Anoro Ellipta) Patient History Medical History COPD (chronic obstructive pulmonary disease) GERD (gastroesophageal reflux disease) History of CVA (cerebrovascular accident) Chronic right basal ganglia infarct noted on CT Lung cancer Pleural effusion Shoulder fracture Right, 2017 Social History Smoking Status: Former smoker Hx Alcohol Use: No Hx Substance Use: No Preferred Language: Romansh Communication Ability: Effective Bench Mechanic Required: No Beliefs That Will Affect Care: None Current Living Situation: Family Current Living Situation Comment: lives with sofia in [place] Feels Safe at Home: Yes Safety Concerns: Feels Safe At This Time Assistive Devices: Glasses and Walker Assistive Devices Comment: uses a walking stick at times at home Review of Systems Review of Systems: All systems reviewed & are unremarkable except as noted in HPI & below Physical Exam Constitutional: + ill appearing and + thin; no acute distress Eyes: + anicteric sclerae Respiratory: no respiratory distress Mildly short of breath Cardiovascular: Rate/Rhythm: regular rate Gastrointestinal (Abdomen): Inspection/Auscultation: abdomen not distended Musculoskeletal: Head/Neck/Chest: head atraumatic Skin: no rashes, warm and dry Neurologic: awake Psychiatric: Orientation: alert She may show some mild confusion Results & Data ([facility]) Vital Signs (Past 12 Hours) Vital Signs Temp Pulse Resp BP Pulse Ox 12/09/20 07:56 36.7 C 96 H 16 126/85 98 Laboratory Results I did review her laboratories Diagnostic Findings I did review her imaging PG Care Time/CCT Total # of Minutes Spent Total Time Spent with Patient: Total time spent is greater than 50% in coordination of care (as documented) at patient's floor/unit and/or counseling patient: Coding Level of Care Code 32434 Initial Inpt Care Lvl 3 Diagnoses Lung cancer C34.90 Laterality: unspecified laterality Lung location: unspecified part of lung (1) Lung cancer Laterality: unspecified laterality Lung location: unspecified part of lung Qualified Code(s): C34.90 - Malignant neoplasm of unspecified part of unspecified bronchus or lung
--- NOTE | 2020-12-09 13:04 | CT Scan Report ---
CHEST CT WITH CONTRAST CT DOSE: 461.61 mGy.cm HISTORY: Acute shortness of breath with reported pneumonia and history of lung cancer stage 4 lung c ancer, pneumonia TECHNIQUE: Multiaxial CT images of the chest were performed following the IV administration of 94 cc of Optiray. A dose lowering technique was utilized adhering to the principles of ALARA. COMPARISON: CT abdomen and pelvis of same day. FINDINGS: Unremarkable thyroid. Pathologic necrotic paratracheal, subcarinal and bilateral hilar amanda opathy include lymph nodes within the left paratracheal distribution/AP window measuring up to 3.1 x 2.2 cm. This adenopathy deforms and moderately narrows the left mainstem bronchus. The right hilar ad enopathy narrows the right middle lobe bronchus. The heart is normal in size. Small pericardial effus ion. Atherosclerosis of the thoracic aorta. Fusiform aneurysmal dilation of the ascending segment estephanie sures 4.1 x 4.1 cm. No dissection or aneurysm rupture. The opacified pulmonary arterial tree appears unremarkable. Small right and trace left pleural effusions. Areas of pleural thickening and nodularity are noted wi thin the right hemithorax. Nodular consolidative opacities throughout the right lung measure up to 5. 2 cm within the right middle lobe. Postoperative changes of prior left lung pulmonary resection. Pulm onary emphysema. Asymmetric intralobular septal thickening of the right lung. Scattered multifocal pu lmonary metastasis include a 2.2 cm nodular consolidation within the left lower lobe on image #133. M ild bilateral bronchial wall thickening. Pleural metastasis layer along the right minor and major fis sures. There is irregularity of the distal trachea, trey and proximal bronchi, left greater than ri ght. There is loss of the mediastinal fat planes on the right adjacent to a few of the pleural-based metastatic lesions. 2.5 cm hypodense focus of the left hepatic lobe is suggestive of a probable cyst. Unremarkable soft t issues. No acute fracture. Degenerative changes of the shoulders and spine. Healing subacute appearin g mildly displaced fracture of the anterior right eighth rib. Chronic appearing nondisplaced fracture of the proximal right humerus. Partially imaged hardware of the proximal left humerus. Mild cortical angulation of the anterior right third rib is suggestive of a chronic fracture. IMPRESSION: 1. Multifocal right greater than left bilateral pulmonary metastasis with right lung predominant pleu ral metastatic disease. There is evidence of mediastinal invasion with probable areas of bronchial in vasion as above. 2. Trace left and small right pleural effusions, likely malignant. Small pericardial effusion. 3. Intralobular septal thickening of the right lung is suggestive of asymmetric pulmonary edema versu s lymphangitic carcinomatosis. 4. Metastatic mediastinal and hilar adenopathy. 5. Fusiform aneurysmal dilation of the ascending thoracic aorta, 4.1 x 4.1 cm. 6. Healing subacute mildly displaced fracture of the anterolateral right eighth rib. ACT 112: Negative or not required by law. Dictated: 12/09/2020 11:46 AM Transcribed: 12/09/2020 12:56 PM Laquita [id number] INDIO_Janee Electronically signed by: Eddy Arango M.D. 12/09/2020 1:02 PM
[2020-12-09] MEDS: UMECLIDINIUM/VILANTEROL 62.5/25MCG 7 PUFFS/INHALER INH SCH (13:07)
--- NOTE | 2020-12-09 14:04 | Hospitalist Progress Note ---
Date of Service December 09, 2020 Assessment & Plan (1) Multifocal pneumonia: Plan: Tracey Felton is a 70 year old female with h/o NSCLC (s/p right lung lobectomy and chemotherapy in 2018), recurrent pleural effusions (s/p pleurodesis in [place], [place] recently; unknown pathology), and chronic vocal cord palsy with aspiration who was admitted to [facility] on 10/08 for increasing shortness of breath and confusion for several days, thought to be due to multifocal pneumonia. Shortness of Breath, Encephalopathy Increased SOB and confusion for several days, WBC 14.8 on admission with neutrophilic predominance and L shift. Multifocal airspace opacities on CXR, likely due to pulmonary metastasis per follow up Chest CT. Suspect multifocal shortness of breath and encephalopathy due to possible multifocal pneumonia as well as worsening metastatic lung cancer. - CT C/A/P with extensive bilateral pulmonary and hepatic metastasis - blood cx pending - Heme/Onc consulted - appreciate recs - patient initially considered salvage chemotherapy, so tabares-CT scan was ordered as mentioned above - Palliative care consulted - appreciate recs - after extensive conversation with the patient's daughter, she is leaning towards palliative care; we will continue to speak with the patient and her daughter about this - will hold on Pulmonary consultation and further diagnostic evaluation of cancer at this time, pending final goals of care decision of the patient and her daughter - CLAIM MANAGER performed FEES evaluation: recommended nectar-thick minced/moist diet - continue IVFs with NSS @80cc/hr - continue Zosyn for broad-spectrum coverage in immunocompromised patient H/o NSCLC Lobectomy and chemotherapy in 2018. With recurrent pleural effusions and diagnostic pleurocentesis at [facility] last month. - patient's daughter in process of getting records (specifically pathology results from pleural fluid) to Dr. Fagan - Heme/Onc consulted as stated above COPD - continue home Anoro Ellipta - DuoNebs PRN GERD/Anxiety - continue home Cymbalta and Ativan - Protonix per hospital formulary (2) Lung cancer: (3) Anemia: (4) COPD (chronic obstructive pulmonary disease): (5) GERD (gastroesophageal reflux disease): (6) Soft hoarse voice: (7) Palliative care encounter: Admission and Anticipated Discharge Date Admission Date: December 08, 2020 Supervising Physician Co-Signing Physician Notes Attending attestation Pt seen and examined in concert with Dr. Staples. In agreement with the documented findings as noted in the resident documentation with any exceptions or additions as noted here. Persistent severe laryngitis without complaint of pain at present. Shortness of breath improved since admission On examination, S1/S2 nl RRR no MCG. CTAB. Abd NT/ND BS+ve NSCLC with episode of SOB, encephalopathy - BCx pending - oncology, palliatve consult - CLAIM MANAGER consult as noted. Continue Zosyn and IVF with concern for aspiration PNA. Supportive care and goals of care conversation ongoing. Consider pulmonology consultation for tissue depending on goals of care. Else see resident documentation as noted. Subjective Intermittently delirious overnight. Patient only alert and oriented to self and place this morning. Denies SOB, cough or breathing issues this morning. Denies fever/chills, chest pain, palpitations, N/V, abdominal pain, rash. Review of Systems Review of Systems: All systems reviewed & are unremarkable except as noted in HPI & below Physical Exam Physical Exam: General: A&Ox2 (self and place only). NAD. Cooperative. HEENT: Atraumatic, normocephalic. Pulm: Faint expiratory crackles in left mild/lower lung pitt. Symmetrical chest rise. No increase work of breathing. No respiratory distress. Cardiac: RRR, -mrg. Radial pulses intact and symmetrical. Abdominal: soft, non-tender, non-distended, BS x 4 Skin: warm, dry, no rash Results & Data Results & Data ([facility]) Vital Signs (Past 12 Hours) Vital Signs Temp Pulse Resp BP Pulse Ox 12/09/20 07:56 36.7 C 96 H 16 126/85 98 Resident Activity Tracking Resident Involvement: Resident Care Provided Care Provided: Adult Hospital Medicine (1) Anemia Anemia type: unspecified type Qualified Code(s): D64.9 - Anemia, unspecified (2) Lung cancer Laterality: unspecified laterality Lung location: unspecified part of lung Qualified Code(s): C34.90 - Malignant neoplasm of unspecified part of unspecified bronchus or lung
[2020-12-09 17:39] LABS: Appearance Urine Clear (Clear); Bacteria Urine Automated Negative (Negative); Bilirubin Urine Negative (Negative); Blood Urine Trace (Negative); Color Urine Yellow; Epithelial Cell Urine Auto 20-30 /lpf (0-5); Glucose Urine UA Negative (Negative); Ketones Urine Negative (Negative); Leukocyte Esterase Urine 1+ (Negative); Nitrite Urine Negative (Negative); Protein Urine Negative (Negative); Specific Gravity Urine 1.045 (1.000-1.030); Urobilinogen Urine Negative (Negative); pH Urine 7.5 (4.5-7.5)
[2020-12-09] MEDS: BENZONATATE 100 MG CAPSULE PO SCH (20:53)
[2020-12-09] MEDS: linaCLOtide 72 MCG CAPSULE PO SCH (20:53)
[2020-12-10] MEDS: PIPERACILLIN/TAZOBACTAM 3.375 GM in DEXTROSE 5% 100 ML IV SCH (03:57)
[2020-12-10] MEDS: LORazepam 1 MG TAB PO SCH ×3 (08:04→20:24)
[2020-12-10] MEDS: DULoxetine HCL 60 MG CAP PO SCH (08:04)
[2020-12-10] MEDS: UMECLIDINIUM/VILANTEROL 62.5/25MCG 7 PUFFS/INHALER INH SCH (08:04)
[2020-12-10] MEDS: PANTOprazole 40 MG TAB PO SCH ×2 (08:04→20:24)
[2020-12-10 08:55] LABS: Basophils # (auto) 0.02 K/uL (0-0.2); Basophils % (auto) 0.2 %; Eosinophils # (auto) 0.01 K/uL (0-0.5); Eosinophils % (auto) 0.1 %; Hematocrit (blood only) 33.8 % (37-47); Hemoglobin 11.5 g/dL (12.0-16.0); Immature Granulocytes # (auto) 0.04 K/uL (0.00-0.02); Immature Granulocytes % (auto) 0.3 %; Lymphocytes % (auto) 6.1 %; Mean Corpuscular Hemoglobin 31.9 pg (25-34); Mean Corpuscular Volume 93.6 fL (80-100); Mean Platelet Volume 9.6 fL (7.4-10.4); Monocytes # (auto) 0.84 K/uL (0.11-0.59); Monocytes % (auto) 6.4 %; Neutrophils # (auto) 11.47 K/uL (1.4-6.5); Neutrophils % (auto) 86.9 %; Platelet Count 311 K/uL (130-400); RDW Coefficient of Variation 14.2 % (11.5-14.5); Red Blood Count 3.61 M/uL (4.2-5.4); White Blood Count 13.18 K/uL (4.8-10.8)
--- NOTE | 2020-12-10 09:27 | Palliative Care Progress Note ---
Date of Service December 10, 2020 Assessment & Plan Admission and Anticipated Discharge Date Admission Date: December 08, 2020 Results & Data ([facility]) Vital Signs (Past 12 Hours) Vital Signs Temp Pulse Resp BP Pulse Ox 12/09/20 21:55 36.8 C 99 H 20 172/97 H 97 PG Care Time/CCT Total # of Minutes Spent Total Time Spent with Patient: Total time spent is greater than 50% in coordination of care (as documented) at patient's floor/unit and/or counseling patient: Coding
[2020-12-10] MEDS ORDERED: LORazepam 0.5 MG TAB PO PRN (09:33)
[2020-12-10 09:38] LABS: Albumin Globulin Ratio 0.7 (0.9-2); Albumin Level 2.5 gm/dl (3.4-5.0); BUN Creatinine Ratio 7.2 (10-20); Bilirubin,Total 0.8 mg/dl (0.2-1); Calcium 8.8 mg/dl (8.5-10.1); Est GFR (African American) 117.7 ml/min; Est GFR (Non-African American) 101.5 ml/min; Globulin 3.5 gm/dl (2.5-4.0); Magnesium 1.6 mg/dl (1.8-2.4); Phosphorus 2.5 mg/dl (2.5-4.9); Potassium 2.8 mmol/L (3.5-5.1)
[2020-12-10] MEDS ORDERED: POTASSIUM CHLORIDE CRTAB 20 MEQ TABCR PO STA (09:46)
[2020-12-10] MEDS: MAGNESIUM SULFATE / D5W 1 GM/100 ML BAG IV SCH ×2 (11:07→12:50)
[2020-12-10] MEDS: SODIUM CHLORIDE 0.9% 1000ML 1,000 ML IV SCH ×2 (11:07→23:45)
[2020-12-10] MEDS: AMOXICILLIN/CLAVULANATE 875 MG TAB PO SCH ×2 (11:12→18:28)
--- NOTE | 2020-12-10 12:05 | Hospitalist Progress Note ---
Date of Service December 10, 2020 Assessment & Plan (1) Multifocal pneumonia: Plan: Tracey Felton is a 70 year old female with h/o NSCLC (s/p right lung lobectomy and chemotherapy in 2018), recurrent pleural effusions (s/p pleurodesis in [place] recently; unknown pathology), and chronic vocal cord palsy with aspiration who was admitted to [facility] on 10/08 for increasing shortness of breath and confusion for several days, thought to be due to multifocal pneumonia. SOB and Encephalopathy due to Metastatic Lung Cancer Suspect multifocal shortness of breath and encephalopathy due to possible multifocal pneumonia as well as worsening metastatic lung cancer. With h/o NSCLC s/p lobectomy and chemotherapy in 2018. - CT C/A/P with extensive bilateral pulmonary and hepatic metastasis - blood cx NGTD (24 hours) - Palliative care consulted - appreciate recs - patient and daughter want her to be discharged to home with hospice - DRY WALL FINISHER performed FEES evaluation: recommended nectar-thick minced/moist diet - continue IVFs with NSS @80cc/hr - transitioned from Zosyn to Augmentin 875/125mg PO BID today, total of 7 days tx COPD - continue home Anoro Ellipta - DuoNebs PRN GERD/Anxiety - continue home Cymbalta and Ativan - Protonix per hospital formulary FEN/GI: nectar-thick and minced/moist diet, NSS @80cc/hr DVT Prophylaxis: SCDs Code Status: DNR/DNI Disposition: patient will be discharged to home with hospice tomorrow (2) Lung cancer: (3) Anemia: (4) COPD (chronic obstructive pulmonary disease): (5) GERD (gastroesophageal reflux disease): (6) Soft hoarse voice: (7) Palliative care encounter: Admission and Anticipated Discharge Date Admission Date: December 08, 2020 Supervising Physician Co-Signing Physician Notes Attending attestation Pt seen and examined in concert with Dr. Staples. In agreement with the documented findings as noted in the resident documentation with any exceptions or additions as noted here. Interval history unobtainable 2/2 patient confusion/delirium. No acute c omplaints at present, denies active pain. On examination, S1/S2 nl RRR no MCG. RLL rales stable from previous. Abd NT/ND BS+ve SOB with encephalopathy in the setting of NSCLC - f/u BCx, transition to PO augmentin. Goals of care conversation pending but strongly leaning towards palliatve/hospice. Else see resident documentation as noted. Subjective Patient was delirious throughout the night. This morning she was A+O to self only but re-directable. No pain or SOB. No concerns/complaints today. Wants to go home. Review of Systems Review of Systems: All systems reviewed & are unremarkable except as noted in HPI & below Physical Exam Physical Exam: General: A&Ox1 (self). NAD. Cooperative. HEENT: Atraumatic, normocephalic. Pulm: Faint expiratory crackles in left mild/lower lung pitt. Symmetrical chest rise. No increase work of breathing. No respiratory distress. Cardiac: RRR, -mrg. Radial pulses intact and symmetrical. Abdominal: soft, non-tender, non-distended, BS x 4 Skin: warm, dry, no rash Resident Activity Tracking Resident Involvement: Resident Care Provided Care Provided: Adult Hospital Medicine (1) Anemia Anemia type: unspecified type Qualified Code(s): D64.9 - Anemia, unspecified (2) Lung cancer Laterality: unspecified laterality Lung location: unspecified part of lung Qualified Code(s): C34.90 - Malignant neoplasm of unspecified part of unspecified bronchus or lung
--- NOTE | 2020-12-10 13:09 | Palliative Care Progress Note ---
Date of Service December 10, 2020 Assessment & Plan (1) Anxiety: Plan: She is on routine lorzepam three times a day. Added prn dosing. I do think that some of this is hospital related with her confusion. She very much wants to go home. (2) Palliative care encounter: Plan: I spoke with daughter, Delfina, on the phone. She really feels that best approach to care for Tracey moving forward would be a focus on comfort. She is conflicted because Tracey had told her that she wanted to fight this. At this time, Tracey is not capable of decision making. Delfina and I talked about her disease being treatable but not curable. Given her advanced disease and dysphagia, she would not likely do well with treatment and will have continued risk of recurrent pneumonia. Delfina feels that permissive aspiration with focus on comfort is the approach that Tracey would want. We discussed hospice benefit in terms of services provided, philosophy and support. She would like to take Tracey home with hospice. Hospitalist and case management notified. (3) Lung cancer: (4) COPD (chronic obstructive pulmonary disease): Admission and Anticipated Discharge Date Admission Date: December 08, 2020 Subjective Restless, feeling anxious. Wants to go home. Has been confused and not oriented. Denies pain. Reports some dyspnea with activity Review of Systems Review of Systems: Fleischmanns Symptom Assessment Scale Pain 0/3 Dyspnea 1/3 Fatigue 2/3 Nausea 0/3 Anxiety 2/3 Drowsiness 0/3 Palliative Performance Score 40% Physical Exam Constitutional: no acute distress ENMT: coughs with sips of coffee weak voice Respiratory: normal respiratory effort; no labored breathing Gastrointestinal (Abdomen): Inspection/Auscultation: abdomen not distended Neurologic: moves all extremities, awake and + confused PG Care Time/CCT Total # of Minutes Spent Total Time Spent: 40 Total Time Spent with Patient: Total time spent is greater than 50% in coordination of care (as documented) at patient's floor/unit and/or counseling patient:goals of care, hospice, family education and support, symptom management Coding Level of Care Code 41537 Subseq Hosp Care Lvl 3 Diagnoses Anxiety F41.9 Palliative care encounter Z51.5 Lung cancer C34.90 Laterality: unspecified laterality Lung location: unspecified part of lung COPD (chronic obstructive pulmonary disease) J44.9 (1) Lung cancer Laterality: unspecified laterality Lung location: unspecified part of lung Qualified Code(s): C34.90 - Malignant neoplasm of unspecified part of unspecified bronchus or lung
[2020-12-10] MEDS: linaCLOtide 72 MCG CAPSULE PO SCH (20:24)
[2020-12-10] MEDS: BENZONATATE 100 MG CAPSULE PO SCH (20:24)
[2020-12-11] MEDS: UMECLIDINIUM/VILANTEROL 62.5/25MCG 7 PUFFS/INHALER INH SCH (08:22)
[2020-12-11] MEDS: DULoxetine HCL 60 MG CAP PO SCH (08:28)
[2020-12-11] MEDS: AMOXICILLIN/CLAVULANATE 875 MG TAB PO SCH (08:28)
[2020-12-11] MEDS: PANTOprazole 40 MG TAB PO SCH (08:32)
[2020-12-11] MEDS: LORazepam 1 MG TAB PO SCH (08:38)
--- NOTE | 2020-12-11 11:19 | Discharge Summary ---
Date of Service December 11, 2020 Admission HPI Per Admitting Provider Tracey Felton is a 70 year old female with stage IV lung cancer who presents to the ER with shortness of breath and confusion. History is mostly taken with her daughter at bedside due to confusion and patient has a haorse soft voice from vocal cord palsy. She has just moved here with her daughter and is yet to establish care. Previous care was done in the [facility]. Most recently in [facility] from November 18 - for recurrent pleural effusion on right side which required pleurodesis, PNA and COPD. She was intubated for acute hypoxic respiratory failure. She had pleurodesis prior to is at [facility] although results of this are not available on admission. On this occasion it was treated with VATS with talc pleurodesis (11/20). She was treated initially with Vancomycin/Zosyn, steroids and treated for sepsis. She was advised to have a thickened diet due to vocal cord palsy and aspirations. No conversation had taken place regarding PEG tubes and this was a new concept for the patient and his daughter. At home she has been noticeably aspirating despite thickened diet. She has had problems with aspirations and her hoarse voice for many months prior to recent hospitalization. She has not seen ENT but it was recommended after her last admission. Reportedly diagnosed with vocal cord palsy and treated with steroids in the hope of improvement after intubation. She has a prior history of non-small cell carcinoma treated prior to this (details not available on admission). This was treated with chemotherapy and left upper lobe lobectomy per her daughter. No radiation. In the ER CXR showed small peripheral airspace opacities within the mid to lower lung zones with interstitial thickening and trace bilateral pleural effusions. WBC elevated. She is not requiring any oxygen. UA pending collection. She was referred to medicine for admission and ongoing management of PNA and lung cancer. Admission Exam Per Admitting Provider Constitutional: well developed and + cachectic; + not well nourished and no acute distress Eyes: PERRL, conjunctivae normal, anicteric sclerae ENMT: Mouth: + muffled voice and + dry oral mucous membranes Neck: trachea midline, no thyromegaly Respiratory: normal respiratory effort; no respiratory distress Auscultation: + diminished lung sounds and + crackles (throughout); no wheezes Cardiovascular: Rate/Rhythm: regular rhythm and + tachycardic Heart Sounds: no murmur Extremities: normal capillary refill; no calf tenderness and no pedal edema Gastrointestinal (Abdomen): normal bowel sounds, soft, nontender, no hepatosplenomegaly Musculoskeletal: no cyanosis or clubbing, extremities motor strength 5/5 Skin: no rashes, warm and dry Neurologic: moves all extremities, awake and + confused; no focal motor deficits (no lateralizing weakness) Psychiatric: A+Ox3, euthymic affect Principal Diagnosis Aspiration Pneumonia Metastatic Lung Cancer Discharge Exam General: A&Ox1 (self). NAD. Cooperative. HEENT: Atraumatic, normocephalic. Pulm: Crackles in bilateral lower lung pitt with decreased air entry. Symmetrical chest rise. No increase work of breathing. No respiratory distress. Cardiac: RRR, -mrg. Radial pulses intact and symmetrical. Abdominal: soft, non-tender, non-distended, BS x 4 Skin: warm, dry, no rash Discharge Data Allergies Allergy/AdvReac Type Severity Reaction Status Date / Time acetaminophen Allergy Mild nausea,vomi Unverified 12/08/20 13:45 tting oxycodone Allergy Mild nausea,vomi Unverified 12/08/20 13:45 tting Consultations 12/08/20 13:47 ED Decision to Admit Stat 12/08/20 18:28 Consult Oncology Routine Consult Palliative Care Routine 12/09/20 10:36 Consult General Surgery Routine Ordered Studies 12/08/20 11:15 CT head/brain wo con Stat 12/09/20 10:32 CT abd pelvis IV con only Routine CT chest diagnostic w con Routine Hospital Course (1) Multifocal pneumonia: Tracey Felton is a 70 year old female with h/o NSCLC (s/p right lung lobectomy and chemotherapy in 2018), recurrent pleural effusions (s/p pleurodesis in [place], [place] recently; unknown pathology), and chronic vocal cord palsy with aspiration who was admitted to [facility] on 10/08 for increasing shortness of breath and confusion for several days, thought to be due to aspiration pneumonia and worsening lung cancer. SOB and Encephalopathy due to Metastatic Lung Cancer Suspect multifocal shortness of breath and encephalopathy due to possible multifocal pneumonia as well as worsening metastatic lung cancer. With h/o NSCLC s/p lobectomy and chemotherapy in 2018. - CT C/A/P with extensive bilateral pulmonary and hepatic metastasis - blood cx NGTD (48 hours) - Palliative care consulted - appreciate recs - patient and daughter want her to be discharged to home with hospice - DRAWER IN performed FEES evaluation: recommended nectar-thick minced/moist diet - transitioned from Zosyn to Augmentin 875/125mg PO BID on 12/11, total of 7 days tx (day 4) COPD - continue home Anoro Ellipta - DuoNebs PRN GERD/Anxiety - continue home Cymbalta and Ativan (2) Lung cancer: (3) Anemia: (4) COPD (chronic obstructive pulmonary disease): (5) GERD (gastroesophageal reflux disease): (6) Soft hoarse voice: (7) Palliative care encounter: Total Time Total Time Spent Total Time Spent (In Minutes): 30 minutes Discharge Plan Discharge Items Patient Disposition: Hospice - Home Reason For Visit: ASPIRATION PNEUMONIA Discharge Diagnosis: Metastatic Lung Cancer Aspiration Pneumonia Activity: Per Instructions section Non-emergency contact: Primary Care Provider, Specialist and Oncologist Call non-emergency contact if: you have any medication questions and your pain is not controlled Follow-up/Referrals: PCP,NO [Primary Care Provider] - (HOME WITH HOSPICE.) Diet: Other - See Diet Comment Diet Comment: nectar-thick, minced/moist consistency Addtl Attending Provider Instructions: You were admitted to [facility] from 12/08 - 12/11 for aspiration pneumonia as well as metastatic lung cancer. After discussion about treatment options, you and your family elected to take you home with hospice care, to focus on maximizing comfort and quality of life. You will be discharged on 12/11 to your home, with [facility] care. Please do not hesitate to contact your PCP and/or hospice care if you have pain and/or trouble breathing that is not controlled. They can provide you with medications if needed to help with this. Please continue to take Augmentin, an antibiotic, twice per day for the next four days for the aspiration pneumonia, to ensure that it is adequately treated. You can continue to use your home inhalers as needed to treat shortness of breath. Pending Studies at Discharge: No Stand-Alone Forms: My [facility] Medications and DC Order Prescriptions: New amoxicillin-pot clavulanate [Augmentin] 875-125 mg tablet 1 tab PO BID 4 Days Qty: 8 RF: 0 Continued benzonatate [Tessalon Perles] 100 mg Capsule 100 mg PO BID PRN (Reason: Cough) RF: 0 ergocalciferol (vitamin D2) [Vitamin D2] 1,250 mcg (50,000 unit) Capsule 1,250 mcg PO WK RF: 0 lorazepam [Ativan] 1 mg Tablet 1 mg PO TID RF: 0 duloxetine 60 mg Capsule,Delayed Release(Dr/Ec) 60 mg PO QAM RF: 0 omeprazole 20 mg Tablet,Delayed Release (Dr/Ec) 20 mg PO BID RF: 0 Linzess 72 mcg Capsule 72 mcg PO HS RF: 0 Anoro Ellipta 62.5-25 mcg/actuation Blister With Device 1 inh INHALATION DAILY RF: 0 Discharge Orders: Discharge Order (Routine); Ordered 12/11/20 Ordered By: Sergey Staples Admission Data Admit Date/Time: 12/08/20 15:05 Attending Provider: Walter Hall Admit Provider: Harinder Mauro Primary Care Provider: PCP,NO Other Providers: Harinder Mauro ; Isacc Mcallister V. ; Lorrie Tracy ; Rickey Haile Other Interventions: Discharge Summary Assessment (RN) Last Done: 12/11/20 12:08 Supervising Physician Co-Signing Physician Notes Attending attestation Pt seen and examined in concert with Dr. Staples. In agreement with the documented findings as noted in the resident documentation with any exceptions or additions as noted here. Laryngitis is perisistent and unchanged. Mild intermittent nonproductive cough consistent with previous. On examination, S1/S2 nl RRR no MCG. RLL rales stable from previous. Abd NT/ND BS+ve Aspiration episode - complete course of augmentin SOB with encephalopathy in the setting of NSCLC - palliative care consultation - transitioning to home hospice with primary care support Else see resident documentation as noted. Total attending time spent on day of discharge: 40 minutes. Resident Activity Tracking Resident Involvement: Resident Care Provided Care Provided: Adult Hospital Medicine
[2020-12-14] MEDS ORDERED: ERGOCALCIFEROL 50,000 UNITS 1250 MCG CAP PO SCH (09:00)
== END 2020-12-11 12:30 | disposition hospice, home (50) | DRG 178 ==
LOC: ED 10:25 → SUATTDRO 15:05 → 3N 15:05